=== PATIENT | male | born 1990 | race Caucasian/White ===

== ENCOUNTER 2016-08-20 02:39 | Emergency (ER) | payer MEDICAID, OTHER ==
[~2016-08-20] VITALS: Ht 172.7 cm; Wt 95.3 kg
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
[2016-08-20] MEDS ORDERED: TDAP [DIPH/PERTUSSIS/TET] 0.5 ML VIAL IM ONE (03:00)
--- NOTE | 2016-08-20 03:10 | NUR ---
BLOOD DRAWN BY IT APPLICATIONS MANAGER. PT UNABLE TO PROVIDE URINE SAMPLE AT THIS TIME. H2O PROVIDED TO PT REQUESTED WITH [facility] PERMISSION.
[2016-08-20 03:22] LABS: BASOPHILS % (AUTO) 0.3 % (0.0-2.0); EOSINOPHILS # (AUTO) 0.8 /CMM (0.0-0.7); EOSINOPHILS % (AUTO) 7.9 % (0.0-6.0); HEMATOCRIT 44 % (39-51); HEMOGLOBIN 14.3 g/dL (13.5-17.5); LYMPHOCYTES # (AUTO) 3.3 /CMM (0.8-4.8); LYMPHOCYTES % (AUTO) 32.2 % (20.0-44.0); MEAN CORPUSCULAR HEMOGLOBIN 28 PG (26.0-33.0); MEAN CORPUSCULAR HGB CONC 33 g/dl (31.0-36.0); MEAN CORPUSCULAR VOLUME 85 fL (80-96); MONOCYTES # (AUTO) 0.4 /CMM (0.1-1.30); MONOCYTES % (AUTO) 3.9 % (2.0-12.0); NEUTROPHILS # (AUTO) 5.7 /CMM (1.8-8.9); NEUTROPHILS % (AUTO) 55.7 % (43.0-81.0); PLATELET COUNT (AUTO) 388 /CMM (150-450); RDW COEFFICIENT OF VARIATION 14.2 (11.5-15.0); RED BLOOD CELL COUNT(AUTO) 5.15 MIL/uL (4.5-6.0); WHITE BLOOD COUNT (AUTO) 10.3 K/uL (4.3-11.0)
--- NOTE | 2016-08-20 03:32 | NUR ---
PT MOM AND DAD AT BEDSIDE. PT REMAINS CALM AND COOPERATIVE AT THIS TIME.PT APPEARS FLAT AFFECT. CALL LIGHT WITHIN REACH.
[2016-08-20 03:40] LABS: ALANINE AMINOTRANSFERASE 30 U/L (12-78); ALBUMIN 4.1 g/dL (3.4-5.0); ALKALINE PHOSPHATASE 72 U/L (46-116); ASPARTATE AMINOTRANSFERASE 16 U/L (15-37); BILIRUBIN,DIRECT 0.1 mg/dL (0.0-0.2); BILIRUBIN,TOTAL 0.8 mg/dL (0.2-1.0); CARBON DIOXIDE 28 mmol/L (21-32); CHLORIDE 102 mmol/L (98-107); CREATININE 1.5 mg/dL (0.6-1.3); GLUCOSE 107 mg/dL (74-106); POTASSIUM 3.6 mmol/L (3.5-5.1); SODIUM SERUM 140 mmol/L (136-145); TOTAL PROTEIN, SERUM 7.8 g/dL (6.4-8.2); UREA NITROGEN, BLOOD 11 mg/dL (7-18)
[2016-08-20 04:00] LABS: ACETAMINOPHEN 0 ug/ml (10-30); ALCOHOL, BLOOD < 3 mg/dL (0-0); SALICYLATE 0.2 mg/dL (2.8-20.0)
--- NOTE | 2016-08-20 04:10 | NUR ---
URINE SAMPLE COLLECTED AND SENT TO LAB. PENDING URINE DRUG SCREEN RESULT.
--- NOTE | 2016-08-20 05:08 | NUR ---
PT FAMILY MEMBERS REMAINS AT BEDSIDE. PT RESTING QUIETLY, NO ACUTE DISTRESS NOTED, RESP EVEN AND UNLABORED. CALL LIGHT WITHIN REACH.
--- NOTE | 2016-08-20 05:09 | NUR ---
PT MEDICALLY CLEARED FOR PSYCH EVAL PER ER MD. WILL PAGE [employer] LEADER.
--- NOTE | 2016-08-20 05:10 | NUR ---
ISAAC LUQUEW PAGED FOR PSYCH EVAL.
[2016-08-20 05:21] LABS: APPEARANCE,URINE CLEAR (CLEAR); BILIRUBIN,URINE NEGATIVE (NEGATIVE); BLOOD, URINE NEGATIVE Ery/uL (NEGATIVE); COLOR,URINE YELLOW (YELLOW); KETONES,URINE NEGATIVE (NEGATIVE); LEUKOCYTE ESTERASE ,URINE NEGATIVE (NEGATIVE); NITRITE, URINE NEGATIVE (NEGATIVE); PH,URINE 6.5 (5.0-8.0); PROTEIN,URINE NEGATIVE (NEGATIVE); UGLUCOSE NEGATIVE (NEGATIVE); UROBILINOGEN,URINE 0.2 EU/dL (0.2)
--- NOTE | 2016-08-20 05:49 | NUR ---
ART CAPILLA/DIRECTOR EPIDEMIOLOGY AT BEDSIDE.
--- NOTE | 2016-08-20 06:13 | NUR ---
Patient discharged to home in stable condition. Written and verbal after care instructions given. Patient verbalizes understanding of instruction. PT IS WAITING FOR HIS MOTHER TO PICK HIM UP. VSS. RESP EVEN AND UNLABORED. NO S/S OF PAIN OR DISTRESS.
[2016-08-20 06:16] VITALS: BP 132/63
== END 2016-08-20 06:17 | disposition home or self-care (01) ==
LOC: ER 02:40
DX: S01.411A Laceration without foreign body of right cheek and temporomandibular area, initial encounter (principal); F32.9 Major depressive disorder, single episode, unspecified; M79.641 Pain in right hand; F20.0 Paranoid schizophrenia; X78.8XXA Intentional self-harm by other sharp object, initial encounter; Y93.89 Activity, other specified; Y92.89 Other specified places as the place of occurrence of the external cause; Y99.8 Other external cause status
CPT/HCPCS: 36415; 73130; 80048; 80076; 80305; 80329; 81001; 85025; 99285; A4606; A6402; G0480 ×2; Z7610; 81000-TC